=== PATIENT | female | born 1990 | race Hispanic/Latino ===

== ENCOUNTER 2023-11-25 22:45 | Emergency (ER) | payer SELFPAY ==
--- OUTSIDE RECORDS SUMMARY | 2023-11-25 22:49 | XMS REPORT | Continuity of Care Document ---
Author Name Unknown Address [address] [place] [address] [facility] thconnect Address [address] [place] [address] Care Team Providers Care Nail Kegger Name Role Phone PCP, PATIENT DOES NOT HAVE A Primary Care Physic Buddy Rockwell MD Attending Clinician [phone] BUDDY HESTER Attending Clinician BUDDY Peterson Admitting Clinician Unavailkarlos e Problems Condition Name Condition Details Condition Category Status Onset Date Resolution Date Last Treatment Date Treating Clinician Comments Source Biliary colic Biliary colic Disease Active 01-24 00:00: 00 [facility] 19 weeks gestation of 19 weeks gestation of Disease Active 02-16 00:00: 00 [facility] Acute intractabl e headache Acute intractabl e headache Disease Active 02-16 00:00: 00 [facility] Subjective visual disturbanc e of left eye Subjective visual disturbanc e of left eye Disease Active 02-16 00:00: 00 [facility] Headache Headache Disease Active 02-16 00:00: 00 [facility] Subconjunc tival hemorrhage of left eye Subconjunc tival hemorrhage of left eye Disease Active 02-16 00:00: 00 [facility] Allergies, Adverse Reactions, Alerts Allergy Name Allergy Type Status Severity Reaction(s) Onset Date Inactive Date Treating Clinician Comments Source NO KNOWN ALLERGIE S Drug Class Active [facility] Social History Social Habit Start Date Stop Date Quantity Comments Source Alcohol intake 2023-01-24 00:00:00 2023-01-24 00:00:00 Current non-drinker of alcohol (finding) [facility] Tobacco use and exposure 2017-01-27 00:00:00 2017-01-27 00:00:00 Smokeless tobacco non-user [facility] Sex Assigned At 1990 00:00:00 1990 00:00:00 [facility] Smoking Status Start Date Stop Date Source Never smoked tobacco [facility] Medications Ordered Medication Name Filled Medication Name Start Date Stop Date Current Medication? Ordering Clinician Indication Dosage Frequency Signature (SIG) Comments Components Source ketorolac (TORADOL) injection 30 mg 01-24 21:45: 00 01-24 20:59 :00 No 30mg 30 mg, Slow IV Push, ONCE, 1 dose, On 01/24/23 at 1645, Routine [facility] NaCl 0.9% (NS) bolus infusion 500 mL 01-24 21:00: 00 01-25 00:34 :00 No 500mL at 999 mL/hr, 500 mL, IV Infusion, ONCE, 1 dose, On 01/24/23 at 1600, STAT [facility] FENTanyl PF (SUBLIMAZE (PF)) injection 50 mcg 01-24 21:00: 00 01-24 20:58 :00 No 50ug 50 mcg, Slow IV Push, ONCE, 1 dose, On 01/24/23 at 1600, STAT [facility] iopamidol (ISOVUE 370-500 mL) injection 85 mL 01-24 21:00: 00 01-24 21:00 :00 No [id number] 85mL 85 mL, Intravenou s, ONCE, 1 dose, On 01/24/23 at 1600, Routine [facility] morpHINE (4 mg/mL) injection 4 mg 01-24 19:15: 00 01-24 19:08 :00 No 4mg 4 mg, Slow IV Push, ONCE, 1 dose, On 01/24/23 at 1415, EULA [facility] maalox:diph enhydrAMINE :lidocaine 2 % viscous 1:1:1 (FIRST-MOUT HWASH BLM) oral suspension 15 mL 01-24 18:30: 00 01-24 19:08 :00 No 15mL 15 mL, Oral, ONCE, 1 dose, On 01/24/23 at 1330, Routine [facility] ondansetron (ZOFRAN (PF)) injection 4 mg 01-24 18:30: 00 01-24 19:08 :00 No 4mg 4 mg, Slow IV Push, ONCE, 1 dose, On 01/24/23 at 1330, EULA [facility] NaCl 0.9% (NS) bolus infusion 1,000 mL 01-24 18:30: 00 01-24 21:01 :00 No 1000mL at 999 mL/hr, 1,000 mL, IV Infusion, ONCE, 1 dose, On 01/24/23 at 1330, STAT [facility] traMADoL 50 mg tablet 01-24 00:00: 00 Yes [id number] 50mg Take 1 tablet by mouth every 6 (six) hours as needed for Pain (scale 4-6) for up to 20 doses. Indication s: acute pain [facility] ondansetron 4 mg disintegrat ing tablet 01-24 00:00: 00 Yes [id number] 4mg Take 1 tablet by mouth every 8 (eight) hours as needed for Nausea and Vomiting (N/V) for up to 15 doses. [facility] famotidine (PEPCID) 20 mg tablet 01-24 00:00: 00 02-09 04:59 :00 No [id number] 20mg Take 1 tablet by mouth in the morning and 1 tablet in the evening. Do all this for 15 days. [facility] ciprofloxac in HCl 500 mg tablet 01-24 00:00: 00 01-30 04:59 :00 No [id number] 500mg Take 1 tablet by mouth in the morning and 1 tablet in the evening. Do all this for 5 days. [facility] Iron, Cbn & Gluc-FA-B12 -C-DSS (FERRALET 90 DUAL-IRON DELIVERY) 90-1-12-50 mg-mg-mcg-m g per tablet 03-05 00:00: 00 Yes 1{tbl} Take 1 tablet by mouth daily. [facility] acetaminoph en-caff-but albital (ESGIC) per capsule 02-17 00:00: 00 Yes 2{capsu le} Take 2 capsules by mouth every 6 (six) hours as needed (headache) . [facility] PLA15-yeds carb,glu-FA -dss-dha (CITRANATAL ASSURE) 35 mg iron-1 mg -50 mg-300 mg combo pack 01-30 00:00: 00 Yes Take 1 tablet and 1 capsule daily [facility] Vital Signs Vital Name Observation Time Observation Value Comments S ource Systolic blood pressure 2023-01-25 00:00:00 127 mm[Hg] [facility] Diastolic blood pressure 2023-01-25 00:00:00 58 mm[Hg] [facility] Heart rate 2023-01-25 00:00:00 62 /min [facility] acute hospital Respiratory rate 2023-01-25 00:00:00 17 /min [facility] Oxygen saturation in Arterial blood by Pulse oximetry 2023-01-25 00:00:00 99 /min [facility] Body temperature 2023-01-24 18:21:00 37.22 Kirsten [facility] Body height 2023-01-24 18:21:00 167.6 cm [facility] Body weight 2023-01-24 18:21:00 108.863 kg [facility] BMI 2023-01-24 18:21:00 38.74 kg/m2 [facility] Procedures Procedure Date / Time Performed Performing Clinicia n Source US GALL BLADDER 2023-01-24 22:55:00 Buddy Hester [facility] CT ABDOMEN PELVIS W CONTRAST 2023-01-24 20:10:26 Buddy Hester [facility] CT LUMBAR SPINE WO CONTRAST 2023-01-24 20:10:26 Buddy Hester [facility] LIPASE 2023-01-24 18:39:00 Buddy Hester [facility] TEST, SERUM 2023-01-24 18:39:00 Dorota Hester [facility] COMP. METABOLIC PANEL (63011) 2023-01-24 18:39:00 Bdudy Hester [facility] CBC WITH DIFF 2023-01-24 18:39:00 [facility] 2023-01-24 18:39:[address] [facility] CONSENT/REFUSAL FOR DIAGNOSIS AND TREATMENT 2023-01-24 18:09:20 Doctor Unassigned, [place] [facility] Encounters Start Date/Time End Date/Time Encounter Type Admission Type Attending Clinicians Care Facility Care Department Encounter ID Source 2023-01-24 13:33:00 2023-01-24 20:04:00 Emergency Buddy Hester [facility] [id number] [facility] 2023-01-24 13:33:00 2023-01-24 20:04:00 Emergency X BUDDY HESTER [facility] ERT [id number] [facility] Results Test Description Test Time Test Comments Results Result Co mments Source [facility] 19:09:04* Test Item Value Reference Range Interpretation Comme nts LIPASE (test code = 1338088922) 48 U/L 0-220 Lab Interpretation (test cod e = 89931-0) Normal [facility], [id number] 19:06:23* Test Item Value Reference Range Interpretation Comme nts PREG SERUM (test code = 1771753460) Negative CRISTOBAL (test code = CRISTOBAL) Less than 10 IU/L. ?If low titer or ectopic is suspected, resubmit specimen in 48-72 hours. [facility] WITH [id number] 18:57:44* Test Item Value Reference Range Interpretation Comme nts WBC (test code = 6690-2) 8.64 See_Comment [Automated messa ge] The system which generated this result transmitted reference range: 4.30 - 11.10 10*3/?L. The reference range was not used to interpret this result as normal/abnormal. RBC (test code = 789-8) 3.97 See_Comment [Automated messa ge] The system which generated this result transmitted reference range: 3.93 - 5.25 10*6/?L. The reference range was not used to interpret this result as normal/abnormal. HGB (test code = 718-7) 12.5 g/dL 11.6-15.0 HCT (test code = 4544-3) 36.7 % 35.7-45.2 MCV (test code = 787-2) 92.4 fL 80.6-95.5 MCH (test code = 785-6) 31.5 pg 25.9-32.8 MCHC (test code = 786-4) 34.1 g/dL 31.6-35.1 RDW-SD (test code = 61982-0) 45.1 fL 39.0-49.9 RDW-CV (test code = 788-0) 13.2 % 12.0-15.5 PLT (test code = 777-3) 251 See_Comment [Automated [place] [employer]] The system which generated this result transmitted reference range: 166 - 358 10*3/?L. The reference range was not used to interpret this result as normal/abnormal. MPV (test code = 65722-4) 9.8 fL 9.5-12.9 NRBC/100 WBC (test code = 5824610017) 0.0 See_Comment [Automated me ssage] The system which generated this result transmitted reference range: 0.0 - 10.0 /100 WBCs. The reference range was not used to interpret this result as normal/abnormal. NRBC x10^3 (test code = 8690020924) See_Comment [Automated me ssage] The system which generated this result transmitted reference range: 10*3/?L. The reference range was not used to interpret this result as normal/abnormal. GRAN MAT (NEUT) % (test code = 770-8) 55.1 % IMM GRAN % (test code = 5198830787) 0.20 % LYMPH % (test code = 736-9) 35.1 % MONO % (test code = 5905-5) 5.7 % EOS % (test code = 713-8) 3.4 % BASO % (test code = 706-2) 0.5 % GRAN MAT x10^3(ANC) (test code = 7504639402) 4.77 10*3/uL 1.88-7.09 IMM GRAN x10^3 (test code = 6796182001) 0.00-0.06 LYMPH x10^3 (test code = 731-0) 3.03 10*3/uL 1.32-3.29 MONO x10^3 (test code = 742-7) 0.49 10*3/uL 0.33-0.92 EOS x10^3 (test code = 711-2) 0.29 10*3/uL 0.03-0.39 BASO x10^3 (test code = 704-7) 0.04 10*3/uL 0.01-0.07 [facility] [id number] 13:56:37 SPECIMEN NUMBER: [id number] CULTURE, URINE SPECIMEN NUMBER: [id number] SPECIMEN COMMENT: URINE SOURCE: URINE REPORT STATUS: FINAL ISOLATE NUMBER 1: ORGANISM: 10/30/2021 >100,000 CFU/ML STAPHYLOCOCCUS SPECIES IDENTIFICATION: 10/31/2021 STAPHYLOCOCCUS SAPROPHYTICUS ADDITIONAL OBSERVATIONS: ROUTINE SUSCEPTIBILITY TESTING OF S.SAPROPHYTICUS IS NOT ADVISED,BECAUSE INFECTIONS RESPOND TO CONCENTRATIONSACHIEVED IN URINE OF ANTIMICROBIAL AGENTS COMMONLY USED TO TREAT ACUTE, UNCOMPLICATED URINARY TRACTINFECTIONS (EG, NITROFURANTOIN, TRIMETHOPRIM+/-SULFAMETHOXAZOLE,OR A FLUORQUINOLONE).PAP TEST, THINPREP, IMAGED 2021-10-29 18:12:16* Test Item Value Reference Range Interpretation Comme nts SOURCE: (test code = 8001) Endocervical SLIDES: (test code = 8011) 1 LMP: (test code = 8021) 09/23/2021 SPECIMEN ADEQUACY: (test code = 34125) (NOTE) Satisfactory for evaluation. Endocervical cells/transformation zone component not identified. INTERPRETATION: (test code = 89021) NILM/NO EPITH. ABNORMALITY;SEE BELOW -- ---- NEGATIVE FOR INTRAEPITHELIAL LESION OR MALIGNANCY (NILM) ------- CYTOTECHNOLOGIS T: (test code = 8101) [facility] LOCATION: (test code = 94107) (NOTE) Specimens proces sed and interpreted at [facility], [address] [place] [address], , CLIA: [id number] CPT: (test code = 8140) (NOTE) 84174 UNLESS OTH ERWISE INDICATED, COMPUTER AIDED AND KENNEL SUPERVISOR SCREENING PERFORMED. The Pap test is a screening test with an inherent, but low probability of error. Your patient should be reminded to consult you immediately if she experiences any suspicious signs or symptoms, regardless of her Pap test result. An alternate report format containing images or consolidated prior Pap history is available as applicable. HPV HIGH RISK WITH GENOTYPE, [id number] 18:07:27* Test Item Value Reference Range Interpretation Comme nts HPV HIGH RISK INTERP (test code = 53208) NEGATIVE NEGATIVE HPV 16 (test code = 30936) NEGATIVE HPV 18 (test code = 84523) NEGATIVE HPV, HR, OTHER GENOTYPES (test code = 88553) NEGATIVE Testing methodol ogy is real-time PCR utilizing hydrolysis probes with the Daniela Winston 4800 system. The test individually detects genotypes 16 and 18, as well as the other 12 high risk types (31,33,35,39,45,51,52,56 ,58,59,66,68). The expected result is negative. A negative result does not rule out the presence of HPV not included in the genotype set, a low level of infection or specimen sampling error. UNLESS OTHERWISE INDICATED, ALL TESTING PERFORMED [employer], [place]. [address] [place] [address] REPULPING SUPERVISOR: CHAD TRINIDAD M.D. CLIA NUMBER [id number] [place]. [id number] VAGINAL PATHOGENS DNA [id number] 15:37:31* Test Item Value Reference Range Interpretation Comme nts KEYSHAWN SPECIES (test code = 58629) NEGATIVE NEGATIVE G. VAGINALIS (test code = 07904) POSITIVE NEGATIVE A T. VAGINALIS (test code = 05346) NEGATIVE NEGATIVE UNLESS OTHERWISE INDICATED, ALL TESTING PERFORMED [facility], [place]. [address] [place] [address] REPULPING SUPERVISOR: CHAD TRINIDAD M.D. CLIA NUMBER [id number] [place]. [id number] UA, MICROSCOPIC, REFLEX TO [id number] 03:00:35* Test Item Value Reference Range Interpretation Comme nts COLOR (test code = 1501) YELLOW YELLOW-STRAW APPEARANCE (test code = 1502) CLEAR CLEAR SPECIFIC GRAVITY (test code = 1503) 1.021 1.005-1.035 LEUKOCYTE ESTERASE (test code = 1504) 2+ NEGATIVE A NITRITE (test code = 1505) NEGATIVE NEGATIVE pH (test code = 1506) 8.0 5.0-9.0 PROTEIN (test code = 1507) 2+ NEGATIVE A GLUCOSE (test code = 1508) NEGATIVE NEGATIVE KETONES (test code = 1509) TRACE NEGATIVE A UROBILINOGEN (test code = 1510) 0.2 MG/DL See_Comment [Automated [place] [employer] [employer]] The system which generated this result transmitted reference range: <=2.0. The reference range was not used to interpret this result as normal/abnormal. BILIRUBIN (test code = 1511) NEGATIVE NEGATIVE OCCULT BLOOD (test code = 1512) NEGATIVE NEGATIVE WHITE BLOOD CELLS (test code = 1513) >50 /HPF 0-5 A RED BLOOD CELLS (test code = 1514) 0-2 /HPF 0-5 EPITHELIAL CELLS (test code = 35280) 0-5 /HPF 0-10 BACTERIA (test code = 1515) 3+ NONE SEEN A CRYSTALS (test code = 1516) PRESENT NONE SEEN A CALCIUM OXALATE CRYSTALS CASTS, HYALINE (test code = 1517) TRACE NONE-TRACE
[2023-11-25] MEDS ORDERED: IBUPROFEN 400 MG TAB ONE (23:33)
[2023-11-25] MEDS ORDERED: ACETAMINOPHEN 500 MG TAB ONE (23:33)
[2023-11-26 00:18] LABS: Specific Gravity 1.023 (1.005-1.030)
[2023-11-26 00:20] LABS: Renal Epithelial <5 /HPF (None Seen); Specific Gravity 1.023 (1.005-1.030); Sqamous Epithelial 20-50 /HPF (None Seen); Urine Bacteria 20-50 /HPF (<20); Urine Bilirubin NEGATIVE (Negative); Urine Blood 1+ (Negative); Urine Clarity Extremely Turbid (Clear); Urine Color Yellow (Yellow); Urine Culture Reflex Order NOT NEEDED; Urine Glucose NEGATIVE (Negative); Urine Ketones NEGATIVE (Negative); Urine Micro Reflex YN NO BILL MICROSCOPIC; Urine Mucus Slight /HPF (None Seen); Urine Nitrite NEGATIVE (Negative); Urine Protein TRACE (Negative); Urine Urobilinogen Normal (Normal); Urine WBC >50 /HPF (<5); Urine pH 5.5 (5.0-7.0)
--- NOTE | 2023-11-26 02:05 | ER ---
Nurse's Notes [facility] Name: Naty Waterman Age: 33 yrs Sex: Female : 1990 Arrival Date: 11/25/2023 Time: 22:45 Bed 8 Private MD: Diagnosis: Pain in left shoulder;Unspecified injury of head, initial encounter;Headache;Dizziness and giddiness Presentation: 11/24 22:56 Chief complaint: Patient states: remember drinking Thursday, unable to recall events rv after, Thursday unable to ambulate because of dizziness, Thursday able to move around and run some errands, still complaining of dizziness until today, complaining of pain on the left side, noted bruising on the left upper arm, with generalized body aches. Coronavirus screen: At this time, the client does not indicate any symptoms associated with coronavirus-19. Ebola Screen: No symptoms or risks identified at this time. Mechanism of Injury: resulted from unkown. Initial Sepsis Screen: Does the patient meet any 2 criteria? No. Patient's initial sepsis screen is negative. Does the patient have a suspected source of infection? No. Patient's initial sepsis screen is negative. Risk Assessment: Do you want to hurt yourself or someone else? Patient reports no desire to harm self or others. 22:56 Method Of Arrival: Ambulatory rv 22:56 Acuity: FABIO 3 rv 11/25 02:24 Onset of symptoms is unknown. tm6 Triage Assessment: 11/24 22:59 General: Appears comfortable, Behavior is calm, cooperative. Pain: Complains of pain in rv left side. Neuro: Level of Consciousness is awake, alert, obeys commands, Oriented to person, place, time, situation, Reports dizziness, since Thursday. Cardiovascular: Capillary refill < 3 seconds Patient's skin is warm and dry. Respiratory: Airway is patent Respiratory effort is even, unlabored, Breath sounds are clear bilaterally. GI: No signs and/or symptoms were reported involving the gastrointestinal system. : No signs and/or symptoms were reported regarding the genitourinary system. Derm: Skin is intact. Historical: - Allergies: 22:59 No Known Allergies; rv - Home Meds: 22:59 None [Active]; rv - PMHx: 22:59 None; rv - PSHx: 22:59 None; rv - Immunization history:: Adult Immunizations up to date. - Infectious Disease History:: Denies. - Social history:: Smoking status: Patient denies any tobacco usage or history of. Screenin:00 [facility] ED Fall Risk Assessment (Adult) History of falling in the last 3 months, rv including since admission No falls in past 3 months (0 pts) Score/Fall Risk Level 3 or more points = High Risk Oriented to surroundings, Maintained a safe environment, Educated pt \T\ family on fall prevention, incl call for assistance when getting out of bed, Assessed \T\ reinforced patient's understanding of fall precautions. Abuse screen: Denies threats or abuse. Denies injuries from another. Nutritional screening: No deficits noted. Tuberculosis screening: No symptoms or risk factors identified. Assessment: 22:59 General: Appears in no apparent distress. uncomfortable, Behavior is calm, cooperative. tm6 Pain: Complains of pain in face Pain currently is 5 out of 10 on a pain scale. Quality of pain is described as dull. Neuro: Level of Consciousness is awake, alert, obeys commands, Oriented to person, place, time, situation. Cardiovascular: No deficits noted. Patient's skin is warm and dry. Respiratory: No deficits noted. Airway is patent Respiratory effort is even, unlabored, Respiratory pattern is regular, symmetrical. GI: Abdomen is flat, non-distended. GI: No signs and/or symptoms were reported involving the gastrointestinal system. : No signs and/or symptoms were reported regarding the genitourinary system. EENT: No signs and/or symptoms were reported regarding the EENT system. Derm: No signs and/or symptoms reported regarding the dermatologic system. Musculoskeletal: No signs and/or symptoms reported regarding the musculoskeletal system. 11/25 02:24 Reassessment: Patient appears in no apparent distress at this time. Patient and/or tm6 family updated on plan of care and expected duration. Pain level reassessed. Patient is alert, oriented x 3, equal unlabored respirations, skin warm/dry/pink. Vital Signs: 11/24 22:56 BP 176 / 91; Pulse 76; Resp 17; Temp 98; Pulse Ox 99% ; Weight 108.86 kg; Height 5 ft. rv 6 in. ; 11/25 00:00 BP 161 / 114; Pulse 76; Resp 17; Pulse Ox 97% ; rv 00:46 BP 149 / 91; Pulse 74; Resp 15; Pulse Ox 99% on R/A; rv 02:23 BP 155 / 93; Pulse 74; Resp 19; Temp 96.8(TE); Pulse Ox 97% on R/A; Pain 3/10; tm6 11/24 22:56 Body Mass Index 38.74 (108.86 kg, 167.64 cm) rv 02:23 Pain Scale: Adult tm6 Obie Coma Score: 04 22:56 Eye Response: spontaneous(4). Motor Response: obeys commands(6). Verbal Response: rv oriented(5). Total: 15. ED Course: 22:49 Patient arrived in ED. jj6 22:55 Catherine Jeong FNP-C is PHCP. kb 22:55 Jorge Fry MD is Attending Physician. kb 22:56 Hero Garcia RN is Primary Nurse. rv 22:59 Triage completed. rv 22:59 Arm band placed on right wrist. rv 22:59 Provided Education on: plan of care. tm6 23:00 Patient has correct armband on for positive identification. Client placed on continuous rv cardiac and pulse oximetry monitoring. NIBP monitoring applied. 23:00 No provider procedures requiring assistance completed. rv 23:09 Jorge Giles PA is PHCP. kb 23:37 Urinalysis W/Microscopic Sent. rv 23:37 PREGU Sent. rv 11/25 00:06 XRAY Shoulder LEFT 2 view In Process Unspecified. EDMS 00:16 PREGU Sent. rv 00:16 Urinalysis W/Microscopic Sent. rv 00:31 CT Head C Spine In Process Unspecified. EDMS 00:31 CT Facial Bones W/O Con In Process Unspecified. EDMS 02:24 Patient did not have IV access during this emergency room visit. tm6 Administered Medications: 11/24 23:37 Drug: Acetaminophen PO 1000 mg PO once Route: PO; rv 23:37 Drug: Ibuprofen PO 800 mg PO once Route: PO; rv Medication: 23:00 VIS not applicable for this client. rv Outcome: 11/25 02:05 Discharge ordered by . cp 02:24 Discharged to home ambulatory, tm6 02:24 Condition: stable 02:24 Discharge instructions given to patient, Instructed on discharge instructions, follow up and referral plans. medication usage, Demonstrated understanding of instructions, follow-up care, medications, Prescriptions given X 2, 02:25 Patient left the ED. tm6 Signatures: Dispatcher [employer] EDMS Catherine Jeong, SAUD SYKESP-Jorge Sheth PA PA cp Vicente, Ronaldo, RN RN Negin Chatman jj6 Neeta Barreto RN RN tm6
--- NOTE | 2023-11-26 02:05 | EDPHYS ---
Physician Documentation [facility] Name: Naty Waterman Age: 33 yrs Sex: Female : 1990 Arrival Date: 11/25/2023 Time: 22:45 Bed 8 Private MD: ED Physician Jorge Fry Historical: - Allergies: 11/24 22:59 No Known Allergies; rv - Home Meds: 22:59 None [Active]; rv - PMHx: 22:59 None; rv - PSHx: 22:59 None; rv - Immunization history:: Adult Immunizations up to date. - Infectious Disease History:: Denies. - Social history:: Smoking status: Patient denies any tobacco usage or history of. Vital Signs: 22:56 BP 176 / 91; Pulse 76; Resp 17; Temp 98; Pulse Ox 99% ; Weight 108.86 kg; Height 5 ft. rv 6 in. ; 11/25 00:00 BP 161 / 114; Pulse 76; Resp 17; Pulse Ox 97% ; rv 00:46 BP 149 / 91; Pulse 74; Resp 15; Pulse Ox 99% on R/A; rv 02:23 BP 155 / 93; Pulse 74; Resp 19; Temp 96.8(TE); Pulse Ox 97% on R/A; Pain 3/10; tm6 11/24 22:56 Body Mass Index 38.74 (108.86 kg, 167.64 cm) rv 02:23 Pain Scale: Adult tm6 [place] Coma Score: 11/24 22:56 Eye Response: spontaneous(4). Motor Response: obeys commands(6). Verbal Response: rv oriented(5). Total: 15. MDM: 22:55 Patient medically screened. kb 11/24 23:32 Order name: Urinalysis W/Microscopic; Complete Time: 00:25 cp 11/25 00:25 Interpretation: Normal except: [facility] Extremely Turbid; UBLD 1+; UPROT TRACE; UESTR 500; cp UWBC >50; URBC 11-20; UBACT 20-50; SQEPI 20-50. 11/24 23:32 Order name: PREGU; Complete Time: 00:25 cp 11/25 00:25 Interpretation: Reviewed. cp 11/24 23:32 Order name: CT Head C Spine cp 11/24 23:32 Order name: CT Facial Bones W/O Con cp 11/24 23:32 Order name: XRAY Shoulder LEFT 2 view cp Administered Medications: 23:37 Drug: Acetaminophen PO 1000 mg PO once Route: PO; rv 23:37 Drug: Ibuprofen PO 800 mg PO once Route: PO; rv Disposition Summary: 11/26/23 02:05 Discharge Ordered Notes: Location: Home cp Problem: new cp Symptoms: have improved cp Condition: Stable cp Diagnosis - Pain in left shoulder cp - Unspecified injury of head, initial encounter cp - Headache cp - Dizziness and giddiness cp Followup: cp - With: Private Physician - When: 2 - 3 days - Reason: Recheck today's complaints Discharge Instructions: - Discharge Summary Sheet cp - Concussion, Adult cp - Head Injury, Adult cp - Shoulder Pain cp - Shoulder Range of Motion Exercises cp Forms: - Medication Reconciliation Form cp - Antibiotic Education cp - Prescription Opioid Use cp - Patient Portal Instructions cp - Leadership Thank You Letter cp - Work release form tm6 Prescriptions: - Ibuprofen 800 mg Oral Tablet - take 1 tablet ORAL route every 8 hours As needed take with food; 30 tablet; cp Refills: 0, Product Selection Permitted - Zofran 4 mg Oral Tablet - take 1 tablet ORAL route every 12 hours As needed; 20 tablet; Refills: 0, cp Product Selection Permitted Signatures: Dispatcher [employer] Catherine Knight, SAUD SYKESP-Jorge Sheth PA PA cp Hero Garcia, RN RN rv
[2023-11-26 03:04] VITALS: BP 155/93; TEMP 96.8; O2SAT 97
--- NOTE | 2023-11-26 12:38 | RAD REPORT ---
EXAM DESCRIPTION: Head C Spine MPR without contrast CLINICAL HISTORY: HEADACHE. TECHNIQUE: Noncontrast CT through the head was performed. Axial, coronal, and sagittal reconstructio ns were created and sent to PACS. CT of the cervical spine was performed without contrast. Axial, coronal, and sagittal reconstructions were created and sent to PACS. These exams were performed according to our departmental dose-optimization program which includes use of Automated Exposure Control, adjustment of the mA and/or kV according to patient size and/or use o f iterative reconstruction technique. COMPARISON: None. FINDINGS: CT Head: The brain parenchyma appears unremarkable. There is no intra-axial or extra-axial bleed seen. There i s no mass or mass effect. The ventricles are normal in size, shape, and configuration. The orbital co ntents appear unremarkable. The visualized paranasal sinuses and mastoid air cells are clear. No acute fracture is identified. CT cervical spine: No acute osseous abnormality identified. Vertebral body height and alignment are maintained. No atlan todental interval widening. Atlantoaxial alignment is maintained. The facet joints are well aligned. The posterior elements are intact. The occipital condyles are well aligned with the C1 lateral masses . The transverse foramina are intact. No significant central canal or neuroforaminal narrowing throug hout the cervical spine. Paraspinal soft tissues: No prevertebral soft tissue swelling. No evidence of epidural hematoma. No a cute findings in the demonstrated portions of the lung apices. IMPRESSION: 1. No acute intracranial abnormality identified. 2. No acute osseous abnormality identified in the cervical spine. Electronically signed by: Sabi Ngo MD 11/26/2023 12:58 AM CDT Due to temporary technical issues with the PACS/Fluency reporting system, reports are being signed by the in house radiologist without review as a courtesy to ensure prompt reporting. The interpreting r adiologist is fully responsible for the content of the report.
--- NOTE | 2023-11-26 12:39 | RAD REPORT ---
EXAM DESCRIPTION: Facial Bones W/ Mpr CLINICAL HISTORY: FACIAL PAIN TECHNIQUE: Contiguous axial images obtained through the face and paranasal sinuses without IV contra st. Coronal and sagittal reformatted images were provided. This exam was performed according to our departmental dose-optimization program, which includes autom ated exposure control, adjustment of the mA and/or kV according to patient size and/or use of iterati ve reconstruction technique. COMPARISON: None available for comparison FINDINGS: Bones: No acute maxillofacial fracture or deformity. Temporomandibular joints: No dislocation. Paranasal sinuses and mastoid air cells: Well aerated Orbits: Globes appear intact. No intraconal or extraconal abnormality. Optic nerves appear unremark able. Soft tissues: Unremarkable IMPRESSION: No acute maxillofacial fracture or deformity. Electronically signed by: Eleno Merrill MD 11/26/2023 01:02 AM CDT Due to temporary technical issues with the PACS/Fluency reporting system, reports are being signed by the in house radiologist without review as a courtesy to ensure prompt reporting. The interpreting r adiologist is fully responsible for the content of the report.
--- NOTE | 2023-11-26 12:40 | RAD REPORT ---
EXAM DESCRIPTION: Shoulder Left 2 View XR Left Shoulder 2 Views CLINICAL HISTORY: Pain COMPARISON: None. TECHNIQUE: Left Shoulder 2 Views FINDINGS: Left clavicle distal lateral aspect shows mildly expansile deformity. No acute fracture or dislocation. No significant sclerotic/lytic bone lesion. Left acromioclavicular joint space shows mild narrowing. Soft tissues unremarkable. IMPRESSION: Left clavicle distal (lateral) aspect old healed fracture. Electronically signed by: Pradip Johnson MD 11/26/2023 12:30 AM CDT Due to temporary technical issues with the PACS/Fluency reporting system, reports are being signed by the in house radiologist without review as a courtesy to ensure prompt reporting. The interpreting r adiologist is fully responsible for the content of the report.
== END 2023-11-26 02:25 | disposition home or self-care (01) ==
LOC: ER 22:45
DX: R42 Dizziness and giddiness (principal); S09.90XA Unspecified injury of head, initial encounter; M25.512 Pain in left shoulder; R51.9 Headache, unspecified
CPT/HCPCS: 70450; 70486; 72125; 76377; 81001; 81025